=== PATIENT | female | born 1970 | race American Indian/Alaskan Native ===

== ENCOUNTER 2017-07-21 08:57 | Outpatient (CLI) | payer BC ==
--- NOTE | 2017-07-26 19:03 | Magnetic Resonance Report ---
mr scan of the orbits was performed with and without contrast Pulse sequences 1 T1 axial thin images 2 T1 sagittal right and left images, coronal images and axial images with contrast 3 T2 axial images 4 Proton density images Images of the orbits showed normal muscles, globes and normal optic nerves. The chiasm was unremarkable as was the cavernous sinuses. There were no areas of enhancement with contrast. A partially empty sella was seen. Sinuses showed no abnormalities. Impression: Normal study
--- NOTE | 2017-07-26 19:10 | Magnetic Resonance Report ---
MR scan of the cranium was performed with and without contrast. Pulse sequences included: 1. T1 weighted sagittal and axial images without contrast and T1 axial and images with contrast and coronal and sagittal reconstructions with contrast 2. T2 weighted axial and coronal images 3. FLAIR axial images 4. Diffusion-weighted axial images 5. Apparent diffusion coefficient images Views of the posterior fossa showed a normal craniocervical junction. Cerebellar pontine angles were normal with normal seventh-eighth nerve complexes. Brainstem and cerebellum were normal. The ventricular system showed no dilatation or distortion. Images of the hemispheres showed no areas of increased or decreased signal. Sinuses, flow voids in the [place] of [place], orbits, and basal ganglia were normal. There was a partially empty sella, a normal variation. There are no abnormal areas of enhancement with contrast. Impression: Normal MR scan of the cranium with and without contrast
== END 2017-07-21 08:58 | disposition home or self-care (01) ==
LOC: SPVIMAG 08:57
PROVIDERS: ATTEND Specialist
DX: R94.02 Abnormal brain scan (principal); M54.41 Lumbago with sciatica, right side
CPT/HCPCS: 70543; 70553; A9577